=== PATIENT | male | born 1980 | race Two or more races ===

== ENCOUNTER 2017-03-22 00:52 | Emergency (ER) | payer OTHER ==
[~2017-03-22] VITALS: Ht 177.8 cm; Wt 117.9 kg
[2017-03-22] MEDS ORDERED: LORAZEPAM 1 MG TABLET ONE (01:03)
[2017-03-22] MEDS ORDERED: LORAZEPAM 1 MG TABLET PO ONE (01:30)
[2017-03-22] MEDS ORDERED: MISCELLANEOUS MED 1 EA EA XX ONE (01:30)
[2017-03-22 01:35] VITALS: BP 137/77
== END 2017-03-22 01:47 ==
LOC: ER 00:54
DX: F41.9 Anxiety disorder, unspecified (principal); I10 Essential (primary) hypertension
CPT/HCPCS: A4606; A6253; A6402; A6403; Z7610